=== PATIENT | male | born 1980 | race Caucasian/White ===

== ENCOUNTER 2019-05-11 12:41 | Emergency (ER) | payer SELFPAY ==
[~2019-05-11] VITALS: Ht 180.3 cm; Wt 82.0 kg
[2019-05-11] MEDS ORDERED: BACTRIM DS1 TAB PO (13:12)
[2019-05-11] MEDS ORDERED: KEFLEX500 M1 PO (13:12)
[2019-05-11 13:22] VITALS: BP 142/78
== END 2019-05-11 13:32 | disposition home or self-care (01) | DRG 603 ==
LOC: ED 12:41
DX: L02.512 Cutaneous abscess of left hand (principal); F17.210 Nicotine dependence, cigarettes, uncomplicated; B95.62 Methicillin resistant Staphylococcus aureus infection as the cause of diseases classified elsewhere

== ENCOUNTER 2021-03-26 16:45 | Emergency (ER) | payer SELFPAY ==
[~2021-03-26] VITALS: Ht 180.3 cm; Wt 86.0 kg
[~2021-03-26 16:45] MED LIST: BACTRIM DS1 TAB PO; KEFLEX500 M1 PO
[2021-03-26 17:31] LABS: GFR > 60 ML/MIN (>=60 (CALC)); GFR FOR AFR.AMER. > 60 ML/MIN (>=60 (CALC))
[2021-03-26 17:33] LABS: HEMATOCRIT 40.8 % (39.0-50.0); IMMATURE GRANULOCYTES 0.2 % (0.0-5.0); MEAN CELL VOLUME 94.9 fL CALC (80.0-100.0); MEAN CORPUSCULAR HGB 31.9 pG CALC (26.0-32.0); MEAN CORPUSCULAR HGB CONC 33.6 g/dL CAL (32.0-36.0); NEUT# 8.85 thou/uL (1.82-7.42); RED BLOOD COUNT 4.3 mill/uL (4.70-6.10)
[2021-03-26 17:35] LABS: HEMOGLOBIN 13.7 g/dl (14.0-18.0)
[2021-03-26 17:45] LABS: ALBUMIN 3.8 g/dL (3.2-5.0); ALKALINE PHOSPHATASE 87 u/l (38-126); ANION GAP 12 (6-22 (CALC)); BILIRUBIN, TOTAL 0.5 mg/dL (0.0-1.4); BUN 12 mg/dL (9-20); BUN/CREATININE RATIO 13 (12-20 (CALC)); CARBON DIOXIDE 27 mmol/l (22-30); CHLORIDE 102 mmol/l (95-108); CREATININE 0.9 mg/dL (0.7-1.3); GFR > 60 ML/MIN (>=60 (CALC)); GFR FOR AFR.AMER. > 60 ML/MIN (>=60 (CALC)); POTASSIUM 3.9 mmol/l (3.5-5.1); SGOT/AST 24 u/l (17-59); SODIUM 137 mmol/l (137-146); TOTAL PROTEIN 7.2 g/dL (6.3-8.2)
[2021-03-26] MEDS ORDERED: CEPHALEXIN500 MG PO (18:52)
[2021-03-26] MEDS ORDERED: BACTRIM DS1 TAB PO (18:52)
[2021-03-26 19:20] VITALS: BP 139/87
== END 2021-03-26 21:05 | disposition home or self-care (01) | DRG 603 ==
LOC: ED 16:45
PROVIDERS: Family Medicine
DX: L03.114 Cellulitis of left upper limb (principal); F17.210 Nicotine dependence, cigarettes, uncomplicated
CPT/HCPCS: Q9967

== ENCOUNTER 2021-11-28 21:49 | Emergency (ER) | payer SELFPAY ==
[~2021-11-28] VITALS: Ht 180.3 cm; Wt 77.2 kg
[~2021-11-28 21:49] MED LIST changes: +CEPHALEXIN500 MG PO
[2021-11-28 21:58] VITALS: BP 124/97
[2021-11-28 22:00] VITALS: BP 153/101
[2021-11-28 22:15] VITALS: BP 95/56
[2021-11-28] MEDS ORDERED: KEFLEX500 MG PO (22:24)
[2021-11-28 22:27] VITALS: BP 153/101
== END 2021-11-28 22:33 | disposition home or self-care (01) | DRG 605 ==
LOC: ED 21:49
PROC: 0HQEXZZ Repair Left Lower Arm Skin, External Approach (ICD-10-PCS; principal; 2021-11-28)
DX: S51.812A Laceration without foreign body of left forearm, initial encounter (principal); F17.210 Nicotine dependence, cigarettes, uncomplicated; W26.0XXA Contact with knife, initial encounter; Y93.89 Activity, other specified; Y92.009 Unspecified place in unspecified non-institutional (private) residence as the place of occurrence of the external cause